=== PATIENT | male | born 1980 | race African-American/Black ===

== ENCOUNTER → 2021-01-11 | Outpatient (CLI) | payer MEDICARE ==
--- NOTE | 2021-01-15 14:46 | PE ---
Nuclear medicine PET/CT HISTORY: R 91.8, solitary pulmonary nodule, initial Patient received 8.4 mCi F-18 FDG intravenously and delayed scanning was performed from skull base to the mid thighs. A localization and attenuation correction CT scan was performed. No comparisons Chest and neck: There is no supraclavicular or cervical adenopathy evident. No mediastinal, axillar, or hilar adenopathy. Apical paraseptal emphysematous change noted on the right. Small nodular density associated with the right middle lobe on axial image 88 may be associated with the fissure, measures approximately 9 mm, there is no associated hypermetabolic uptake. There is no pleural or pericardial effusion. ABDOMEN: There is no adrenal mass, no liver mass, no retroperitoneal adenopathy or suspicious uptake. There is no ascites. Osseous structures are remarkable for a focus of increased uptake in the left aspect of L5, SUV 3.1, no corresponding lytic or blastic lesion, findings could be related to degenerative change. Muscular uptake noted in the paraspinal location likely physiologic. IMPRESSION: No suspicious uptake evident within the chest. Indeterminate uptake in the lumbar spine o f questionable clinical significance. Consider follow-up, lumbar MRI as indicated.
== END | disposition home or self-care (01) ==
LOC: RADPETMAIN 07:25
PROVIDERS: ATTEND Internal Medicine Critical Care Medicine
DX: R91.8 Other nonspecific abnormal finding of lung field (principal)
CPT/HCPCS: 78815; A9552